=== PATIENT | female | born 1950 | race Caucasian/White ===

== ENCOUNTER 2018-11-01 12:08 | Emergency (ER) | payer BC, MEDICARE ==
--- NOTE | 2018-11-01 12:36 | EDM.PDOC ---
ED HPI GENERAL MEDICAL PROBLEM - General Chief Complaint: Gastrointestinal Problem Stated Complaint: BLACK STOOLS Time Seen by Provider: 11/01/18 12:25 Source of Information: Reports: Patient, Old Records, RN, RN Notes Reviewed History Limitations: Reports: No Limitations - History of Present Illness INITIAL COMMENTS - FREE TEXT/NARRATIVE: Pt presents to ER from home by POV with c/o black tarry stool. Pt states that last Wednesday (10/25/18) she called Nery Alvarez NP at [facility] because she was having some constipation and cramping. Because she has had diverticulitis in the past Nery prescribed her Cipro and Flagyl over the phone. She felt that she was improving as expected, but went to see Nery Alvarez MOLD PRESS OPERATOR in clinic on 10/28 at which time she had blood drawn for lab and had her semi annual check up, and was told to continue the antibiotics. Yesterday (10/31/18) she had onset of chills with LLQ abdominal cramping, and began having black stools. She denies fevers, nausea, vomiting, rapid HR, lightheadedness, or shortness of breath. Denies any bright red blood from the rectum. Onset Date: 10/31/18 Duration: Recurring Location: Reports: Abdomen Quality: Reports: Ache Severity: Mild Improves with: Reports: None Worsens with: Reports: None Associated Symptoms: Reports: No Other Symptoms Bilateral Lower Abdomen Pain Score (Numeric/FACES): 6 - Related Data Allergies Allergy/AdvReac Type Severity Reaction Status Date / Time codeine Allergy Intermediate Vomiting Verified 11/01/18 12:16 Home Meds: Home Meds Calcium Carbonate/Vitamin D3 [Calcium 500 + Vit D 400] 1 tab PO DAILY 06/27/13 [ History] Fluticasone Propionate [Flonase] 2 sprays IAN DAILY 06/27/13 [History] Lansoprazole [Prevacid] 1 tab PO DAILY 06/27/13 [History] Losartan [Cozaar] 50 mg PO DAILY 06/27/13 [History] Metoprolol Succinate [Toprol XL] 25 mg PO DAILY 06/27/13 [History] [place]-3 Fatty Acids [[place]-3] 2 cap PO BID 06/27/13 [History] Aspirin [Halfprin] 81 mg PO DAILY 11/01/18 [History] Ciprofloxacin HCl [Cipro] 500 mg PO BID 11/01/18 [History] metroNIDAZOLE [Metronidazole] 500 mg PO TID 11/01/18 [History] Past Medical History - Past Health History Medical/Surgical History: Denies Medical/Surgical History HEENT History: Reports: Impaired Vision Cardiovascular History: Reports: Hypertension Gastrointestinal History: Reports: Diverticulosis - Past Surgical History GI Surgical History: Reports: Cholecystectomy Female Surgical History: Reports: Hysterectomy Musculoskeletal Surgical History: Reports: Arthroscopic Knee Social & Family History - Tobacco Use Smoking Status *Q: Never Smoker Second Hand Smoke Exposure: No - Recreational Drug Use Recreational Drug Use: No - Living Situation & Occupation Living situation: Reports: with Family ED ROS GENERAL - Review of Systems Review Of Systems: ROS reveals no pertinent complaints other than HPI. ED EXAM, GI/ABD - Physical Exam Exam: See Below Exam Limited By: No Limitations General Appearance: Alert, WD/WN, No Apparent Distress Eyes: Bilateral: Normal Appearance Head: Atraumatic, Normocephalic Neck: Normal Inspection Respiratory/Chest: No Respiratory Distress, Lungs Clear, Normal Breath Sounds, No Accessory Muscle Use, Chest Non-Tender Cardiovascular: Regular Rate, Rhythm, No Edema, Tachycardia GI/Abdominal Exam: Normal Bowel Sounds, Soft, No Organomegaly, No Distention, No Abnormal Bruit, No Mass, Pelvis Stable, Tender (Very slight LLQ tenderness, no peritoneal signs) (Female) Exam: Deferred Rectal (Female) Exam: Heme - Stool Back Exam: Normal Inspection Extremities: Normal Inspection Neurological: Alert, Oriented, No Motor/Sensory Deficits Psychiatric: Normal Mood Skin Exam: Warm, Dry, Intact, Normal Color, No Rash Course - Vital Signs Last Recorded V/S: Last Vital Signs Temp 36.6 C 11/01/18 12:11 Pulse 116 H 11/01/18 12:11 Resp 18 11/01/18 12:11 BP 188/93 H 11/01/18 12:11 Pulse Ox 96 11/01/18 12:11 - Orders/Labs/Meds Orders: Active Orders 24 hr Category Date Time Status Peripheral IV Care [RC] . DIRECTED Care 11/01/18 12:37 Active AMYLASE [CHEM] Stat Lab 11/01/18 12:46 Received COMPREHENSIVE METABOLIC PN,CMP [CHEM] Stat Lab 11/01/18 12:46 Received INR,PT,PROTHROMBIN TIME [COAG] Stat Lab 11/01/18 12:46 Received LIPASE [CHEM] Stat Lab 11/01/18 12:46 Received PTT,PARTIAL THROMBOPLSTIN TIME [COAG] Stat Lab 11/01/18 12:46 Received Sodium Chloride 0.9% [Normal Saline] 1,000 ml Med 11/01/18 12:37 Active IV .BOLUS Sodium Chloride 0.9% [Saline Flush] Med 11/01/18 12:37 Active 10 ml FLUSH ASDIRECTED PRN Peripheral IV Insertion Adult [OM.PC] Stat Oth 11/01/18 12:36 Ordered Medication Orders Sodium Chloride (Normal Saline) 1,000 mls @ 999 mls/hr IV .BOLUS ONE Stop: 11/01/18 13:37 Last Admin: 11/01/18 12:47 Dose: 999 mls/hr Sodium Chloride (Saline Flush) 10 ml FLUSH ASDIRECTED PRN PRN Reason: Keep Vein Open Labs: Laboratory Tests 11/01/18 11/01/18 Range/Units 12:46 12:46 WBC 6.4 (5.0-10.0) 10^3/uL RBC 4.73 (4.2-5.4) 10^6/uL Hgb 14.1 (12.0-16.0) g/dL Hct 41.3 (37.0-47.0) % MCV 87.3 (80-100) fL MCH 29.8 (27.0-34.0) pg MCHC 34.1 (33.0-35.0) g/dL Plt Count 319 (150-450) 10^3/uL Neut % (Auto) 58.8 (42.2-75.2) % Lymph % (Auto) 30.7 (20.5-50.1) % [place] % (Auto) 7.4 (2-8) % Eos % (Auto) 2.5 (1.0-3.0) % Baso % (Auto) 0.6 (0.0-1.0) % Lactic Acid 2.0 (0.5-2.2) mmol/L Meds: Medications Generic Name Dose Route Start Last Admin Trade Name Freq PRN Reason Stop Dose Admin Sodium Chloride 1,000 mls @ 999 mls/hr 11/01/18 12:37 11/01/18 12:47 Normal Saline IV 11/01/18 13:37 999 mls/hr .BOLUS ONE Administration Sodium Chloride 10 ml 11/01/18 12:37 Saline Flush FLUSH ASDIRECTED PRN Keep Vein Open - Re-Assessments/Exams Free Text/Narrative Re-Assessment/Exam: 11/01/18 13:20 Pt had a BM while in the ER. The BM was dark brown but not black, and was Heme Negative. No anemia or elevated WBC. I called eNry Alvarez MOLD PRESS OPERATOR (pt's PCP) to arrange f/u for this week. I see no indication of imaging or further evaluation at this time. Pt with be d/c'd home to continue her current medications. Departure - Departure Time of Disposition: 13:15 Disposition: Home, Self-Care 01 Condition: Good Clinical Impression: Encounter for medical screening examination, Dehydration - Discharge Information *PRESCRIPTION DRUG MONITORING PROGRAM REVIEWED*: No *COPY OF PRESCRIPTION DRUG MONITORING REPORT IN PATIENT CLAY: No Instructions: Dehydration, Adult Forms: ED Department Discharge Additional Instructions: Your stool was negative for blood at today's ER visit. Drink plenty of water. Follow up with Nery Alvarez in clinic this week to recheck your stool for blood. - My Orders Last 24 Hours: My Active Orders 11/01/18 12:36 Peripheral IV Insertion Adult [OM.PC] Stat 11/01/18 12:37 Peripheral IV Care [RC] . DIRECTED Sodium Chloride 0.9% [Normal Saline] 1,000 ml IV .BOLUS Sodium Chloride 0.9% [Saline Flush] 10 ml FLUSH ASDIRECTED PRN 11/01/18 12:46 AMYLASE [CHEM] Stat COMPREHENSIVE METABOLIC PN,CMP [CHEM] Stat INR,PT,PROTHROMBIN TIME [COAG] Stat LIPASE [CHEM] Stat PTT,PARTIAL THROMBOPLSTIN TIME [COAG] Stat - Assessment/Plan Last 24 Hours: My Active Orders 11/01/18 12:36 Peripheral IV Insertion Adult [OM.PC] Stat 11/01/18 12:37 Peripheral IV Care [RC] . DIRECTED Sodium Chloride 0.9% [Normal Saline] 1,000 ml IV .BOLUS Sodium Chloride 0.9% [Saline Flush] 10 ml FLUSH ASDIRECTED PRN 11/01/18 12:46 AMYLASE [CHEM] Stat COMPREHENSIVE METABOLIC PN,CMP [CHEM] Stat INR,PT,PROTHROMBIN TIME [COAG] Stat LIPASE [CHEM] Stat PTT,PARTIAL THROMBOPLSTIN TIME [COAG] Stat
[2018-11-01] MEDS ORDERED: Sodium Chloride 0.9% 10 ML Syringe FLUSH PRN (12:37)
[2018-11-01] MEDS ORDERED: Sodium Chloride 0.9% 1,000 ML IV ONE (12:37)
[2018-11-01 13:17] LABS: CHLORIDE,CL 102 mmol/L (101-111); SODIUM,NA 132 mmol/L (135-145)
== END 2018-11-01 13:29 | disposition home or self-care (01) ==
LOC: DL.ED 12:08
DX: E86.0 Dehydration (principal); R19.5 Other fecal abnormalities; I10 Essential (primary) hypertension; Z88.5 Allergy status to narcotic agent; Z79.82 Long term (current) use of aspirin; Z79.899 Other long term (current) drug therapy; Z90.49 Acquired absence of other specified parts of digestive tract; Z90.710 Acquired absence of both cervix and uterus
CPT/HCPCS: 36415; 80053; 82150; 82272; 83605; 83690; 85025; 85610; 85730; 96360; 99284-25; J7030

== ENCOUNTER 2018-12-13 06:19 | Day surgery (SDC) | payer BC ==
[~2018-12-13 06:19] MED LIST: Midazolam 1 MG/ML 2 ML SDV ONE; fentaNYL 100 MCG/2 ML SDV ONE
[2018-12-13] MEDS ORDERED: fentaNYL 100 MCG/2 ML SDV IV ONE ×3 (06:20→07:31)
[2018-12-13] MEDS ORDERED: Midazolam 1 MG/ML 2 ML SDV IV ONE ×5 (06:20→07:36)
[2018-12-13] MEDS ORDERED: Dextrose 5%-0.45% NaCl 1,000 ML IV SCH (07:00)
[2018-12-13] MEDS ORDERED: Sodium Chloride 0.9% 10 ML Syringe FLUSH PRN (07:00)
--- NOTE | 2018-12-13 08:24 | OR ---
DATE: 12/13/2018 PROCEDURE: Total colonoscopy. INSTRUMENT USED: PCF-H190DL Olympus video colonoscope. PREMEDICATIONS: Fentanyl 100 mcg intravenous, Versed 3 mg intravenous. Nasal O2 cannula. The procedure was done under pulse oximetry, BP recording, and cardiac technologist. INDICATION: The patient with recent left-sided lower abdominal pain and rectal bleeding. Colonoscopic examination is done for detection of any polypoid lesions and removal, endoscopic hemostasis therapy if needed. DESCRIPTION OF PROCEDURE: Initial rectal exam was unremarkable. Rigid anoscopy was normal. The colonoscope was passed with ease. Numerous scattered diverticula were noted in the distal left colon along with deformity. The scope was passed with ease up to the ileocecal area. Photographs were taken of the normal-appearing cecum identified by landmarks of appendiceal orifice and double- bulged ileocecal folds. No bleeding was noted from any of the visualized areas at the commencement of the examination. The bowel preparation was found to be adequate, Holcomb scale 3 in all the regions. No stricture. No vascular ectasia. No large isolated ulcerations seen. No evidence of diffuse inflammatory bowel disease in the form of friability, contact bleeding, or ulcerations. No polyp or tumor mass identified. Probing the proximal sides of folds and flexures, using adequate distention and clearing of the stool material, withdrawal of the scope was made, cecum to rectum time over 6 minutes. No bleeding was noted from any of the visualized areas at the completion of examination. IMPRESSION: Diverticulosis. The patient tolerated the procedure well. [facility] /[id number]
== END 2018-12-13 09:53 | disposition home or self-care (01) ==
LOC: DL.ENDO 06:19
PROVIDERS: ATTEND Internal Medicine Gastroenterology
DX: K62.5 Hemorrhage of anus and rectum (principal); R10.32 Left lower quadrant pain; K57.90 Diverticulosis of intestine, part unspecified, without perforation or abscess without bleeding
CPT/HCPCS: 45378; J2250; J3010; J7042; G0121

== ENCOUNTER 2019-03-15 10:02 | Observation (INO) | payer BC, MEDICARE ==
[2019-03-15] MEDS ORDERED: Potassium Chloride 10 MEQ Tab.ER PO ONE (11:39)
[2019-03-15] MEDS ORDERED: Sodium Chloride 0.9% 10 ML Syringe FLUSH PRN ×2 (11:39)
[2019-03-15] MEDS ORDERED: Acetaminophen 500 MG Tab PO PRN (11:42)
--- NOTE | 2019-03-15 12:15 | PCM.HP ---
H&P History of Present Illness - General Date of Service: 03/15/19 Admit Problem/Dx: Admission Diagnosis/Problem Admission Diagnosis/Problem Hypokalemia Source of Information: Patient History Limitations: Reports: No Limitations - History of Present Illness Initial Comments - Free Text/Narative: 68 yo F with PMH of HTN, DM2 (diet controlled), HLD who was admitted from the PCP clinic today for abnormal lab value (potassium 2.7) Patient was being followed up in PCP clinic today as new HTN med was added last week (chlorthalidone). Lab work showed a potassium of 2.7 Patient is generally asymptomatic. No diarrhea, no n/v, no chest pain, no abdominal pain. - Related Data Allergies/Adverse Reactions: Allergies Allergy/AdvReac Type Severity Reaction Status Date / Time codeine Allergy Intermediate Vomiting Verified 12/13/18 06:50 Home Medications: Home Meds Calcium Carbonate/Vitamin D3 [Calcium 500 + Vit D 400] 1 tab PO DAILY 06/27/13 [ History] Fluticasone Propionate [Flonase] 2 sprays IAN DAILY 06/27/13 [History] Lansoprazole [Prevacid] 30 mg PO DAILY 06/27/13 [History] [place]-3 Fatty Acids [[place]-3] 1 cap PO BID 06/27/13 [History] Aspirin [Halfprin] 81 mg PO DAILY 11/01/18 [History] Acetaminophen [Tylenol Extra Strength] 1,000 mg PO Q6H PRN 12/12/18 [History] Ibuprofen 400 mg PO Q6H PRN 12/12/18 [History] atorvaSTATin Calcium [Atorvastatin Calcium] 20 mg PO BEDTIME 12/12/18 [History] Chlorthalidone 12.5 mg PO DAILY 03/15/19 [History] Losartan [Cozaar] 100 mg PO DAILY 03/15/19 [History] Metoprolol Succinate [Toprol Xl] 50 mg PO DAILY 03/15/19 [History] Past Medical History - Past Health History Medical/Surgical History: Denies Medical/Surgical History HEENT History: Reports: Impaired Vision Cardiovascular History: Reports: Hypertension Respiratory History: Reports: Bronchitis, Recurrent Gastrointestinal History: Reports: Diverticulosis Genitourinary History: Reports: None 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: Musculoskeletal History: Reports: Arthritis, Back Pain, Chronic Neurological History: Reports: None Endocrine/Metabolic History: Reports: None Hematologic History: Reports: None Oncologic (Cancer) History: Reports: None Dermatologic History: Reports: None - Infectious Disease History Infectious Disease History: Reports: Chicken Pox, Measles, Mumps - Past Surgical History Head Surgeries/Procedures: Reports: None HEENT Surgical History: Reports: None Cardiovascular Surgical History: Reports: None GI Surgical History: Reports: Appendectomy, Cholecystectomy, Colonoscopy, EGD Female Surgical History: Reports: Hysterectomy Musculoskeletal Surgical History: Reports: None, Arthroscopic Knee Social & Family History - Caffeine Use Caffeine Use: Reports: Coffee Caffeine Use Comment: 2 cups daily - Living Situation & Occupation Living situation: Reports: with Family H&P Review of Systems - Review of Systems: Review Of Systems: ROS reveals no pertinent complaints other than HPI. General: Reports: No Symptoms HEENT: Reports: No Symptoms Pulmonary: Reports: No Symptoms Cardiovascular: Reports: No Symptoms Gastrointestinal: Reports: No Symptoms Genitourinary: Reports: No Symptoms Musculoskeletal: Reports: No Symptoms Skin: Reports: No Symptoms Psychiatric: Reports: No Symptoms Neurological: Reports: No Symptoms Exam - Exam Exam: See Below - Exam General: Alert, Oriented HEENT: Conjunctiva Clear, EACs Clear Neck: Supple, Trachea Midline Lungs: Clear to Auscultation, Normal Respiratory Effort Cardiovascular: Regular Rate, Regular Rhythm GI/Abdominal Exam: Normal Bowel Sounds, Soft, Non-Tender, No Organomegaly Extremities: Normal Inspection, Normal Range of Motion, Non-Tender, No Pedal Edema - Patient Data Lab Results Last 24 hrs: Laboratory Results - last 24 hr 03/15/19 Range/Units 12:02 POC Glucose 106 H (70-105) mg/dl Problem List Initiated/Reviewed/Updated: Yes Orders Last 24hrs: Active Orders 24 hr Category Date Time Status Patient Status [ADT] Routine ADT 03/15/19 11:40 Active Accu Check [Blood Glucose Check, Bedside] [] Care 03/15/19 11:40 Active QIDACANDBED Ambulate [] ASDIRECTED Care 03/15/19 11:40 Active Height and Weight [RC] DAILY Care 03/15/19 11:40 Active Oxygen Therapy [RC] PRN Care 03/15/19 11:40 Active Peripheral IV Care [RC] . DIRECTED Care 03/15/19 11:40 Active Up With Assistance [RC] ASDIRECTED Care 03/15/19 11:40 Active VTE/DVT Education [RC] PER UNIT ROUTINE Care 03/15/19 11:40 Active Vital Signs [RC] Q4H Care 03/15/19 11:40 Active Regular Diet [DIET] Diet 03/15/19 Breakfast Active POTASSIUM,K [CHEM] Q6H Lab 03/15/19 11:55 Received POTASSIUM,K [CHEM] Q6H Lab 03/15/19 17:39 Ordered POTASSIUM,K [CHEM] Q6H Lab 03/15/19 23:39 Ordered Acetaminophen [Tylenol Extra Strength] Med 03/15/19 11:42 Ordered 1,000 mg PO Q6H PRN Aspirin [Halfprin] Med 03/16/19 09:00 Ordered 81 mg PO DAILY Calcium Carbonate/Vitamin D3 [Calcium 500 + Vit D 400] Med 03/16/19 09:00 Ordered 1 tab PO DAILY Chlorthalidone Med 03/16/19 09:00 Ordered 12.5 mg PO DAILY Fluticasone Propionate [Flonase] Med 03/16/19 09:00 Ordered DOSE gm IAN DAILY Insulin Lispro [HumaLOG] Med 03/15/19 17:00 Ordered See Protocol SUBCUT QIDACANDBED Lansoprazole [Prevacid] Med 03/16/19 09:00 Ordered 30 mg PO DAILY Losartan [Cozaar] Med 03/16/19 09:00 Ordered 100 mg PO DAILY Metoprolol Succinate [Toprol XL] Med 03/16/19 09:00 Ordered 50 mg PO DAILY [place]-3 Fatty Acids [[place]-3] Med 03/15/19 21:00 Ordered 1 cap PO BID Potassium Chloride [KCl 10 MEQ in Water 100 ML] 10 meq Med 03/15/19 11:45 Ordered Premix Bag 1 bag IV Q1H Potassium Chloride [Klor-Con 10] Med 03/15/19 11:39 Once 40 meq PO ONETIME ONE Sodium Chloride 0.9% [Saline Flush] Med 03/15/19 11:39 Ordered 10 ml FLUSH ASDIRECTED PRN Sodium Chloride 0.9% [Saline Flush] Med 03/15/19 11:39 Ordered 10 ml FLUSH ASDIRECTED PRN atorvaSTATin [Lipitor] Med 03/15/19 21:00 Ordered 20 mg PO BEDTIME Peripheral IV Insertion Adult [OM.PC] Routine Oth 03/15/19 11:40 Ordered Saline Lock Insert [OM.PC] Routine Oth 03/15/19 11:40 Ordered Resuscitation Status Routine Resus Stat 03/15/19 11:39 Ordered Medication Orders Acetaminophen (Tylenol Extra Strength) 1,000 mg PO Q6H PRN PRN Reason: Pain Aspirin (Halfprin) 81 mg PO DAILY [facility] Atorvastatin Calcium (Lipitor) 20 mg PO BEDTIME [place] Chlorthalidone (Chlorthalidone) 12.5 mg PO DAILY [facility] Fluticasone Propionate (Flonase) gm IAN DAILY [place] Potassium Chloride 10 meq/ (Premix) 100 mls @ 100 mls/hr IV Q1H [place] Stop: 03/15/19 15:44 Insulin Human Lispro (Humalog) 0 unit SUBCUT QIDACANDBED [place]; Protocol Metoprolol Succinate (Toprol Xl) 50 mg PO DAILY [place] Non-Formulary Medication (Calcium Carbonate/Vitamin D3 [Calcium 500 + Vit D 400] ) 1 tab PO DAILY [place] Non-Formulary Medication (Lansoprazole [Prevacid]) 30 mg PO DAILY [place] Non-Formulary Medication (Losartan [Cozaar]) 100 mg PO DAILY [place] Non-Formulary Medication ([place]-3 Fatty Acids [[place]-3]) 1 cap PO BID [place] Potassium Chloride (Klor-Con 10) 40 meq PO ONETIME ONE Stop: 03/15/19 11:40 Sodium Chloride (Saline Flush) 10 ml FLUSH ASDIRECTED PRN PRN Reason: Keep Vein Open Sodium Chloride (Saline Flush) 10 ml FLUSH ASDIRECTED PRN PRN Reason: Keep Vein Open Assessment/Plan Comment:: Hypokalemia unclear etiology replenish potassium both IV and orally check potassium Q6h encouraged patient to eat green leafy veggies in diet Plan to dc tomorrow after correcting potassium #Hx of HTN good BP control continue home meds #DM2 diet controlled accuchecks, ISS carb consistent diet #HLD continue home med #DVT ppx SC lovenox
[2019-03-15] MEDS: Potassium Chloride 20 MEQ in Premix Bag 1 BAG IV SCH ×2 (13:24→16:04)
[2019-03-15] MEDS: Insulin Lispro 100 Units/ML 3 ML Vial SUBCUT SCH (18:36)
[2019-03-15] MEDS ORDERED: atorvaSTATin 20 MG Tab PO SCH (21:00)
[2019-03-15] MEDS ORDERED: OMEGA PO SCH (21:00)
[2019-03-16] MEDS: Insulin Lispro 100 Units/ML 3 ML Vial SUBCUT SCH (07:47)
[2019-03-16] MEDS ORDERED: Chlorthalidone 25 MG Tab PO SCH (09:00)
[2019-03-16] MEDS ORDERED: Non-Formulary Medication 1 Each (Lansoprazole [Prevacid] 30 MG) PO SCH (09:00)
[2019-03-16] MEDS ORDERED: Metoprolol Succinate 50 MG Tab.ER PO SCH (09:00)
[2019-03-16] MEDS ORDERED: Aspirin 81 MG Tab.EC PO SCH (09:00)
[2019-03-16] MEDS ORDERED: Non-Formulary Medication 1 Each (Losartan [Cozaar] 100 MG) PO SCH (09:00)
[2019-03-16] MEDS ORDERED: Fluticasone Propionate Nasal Spray 16 GM Bottle NAS SCH (09:00)
[2019-03-16] MEDS ORDERED: Enoxaparin 40 MG/0.4 ML Syringe SUBCUT SCH (09:30)
--- NOTE | 2019-03-16 10:54 | PCM.DCSUM1 ---
Discharge Summary - Hospital Course Free Text/Narrative:: 68 yo F with PMH of HTN, DM2 (diet controlled), HLD who was admitted from the PCP clinic today for abnormal lab value (potassium 2.7) Patient was being followed up in PCP clinic today as new HTN med was added last week (chlorthalidone). Lab work showed a potassium of 2.7 Patient is generally asymptomatic. No diarrhea, no n/v, no chest pain, no abdominal pain. Potassium was replenished both IV and orally and normalized. Hypokalemia likely 2/2 to newly started diuretic. Discharged on potassium supplement (10 mEq daily] for 2 weeks Follow up with PCP REcheck BMP in one week. Encouraged to eat green leafy vegetables. Diagnosis: Stroke: No Modified [place] Scale: No Symptoms at All Modified Dmitriy Scale Score: 0 - Discharge Data Discharge Date: 03/16/19 Discharge Disposition: Home, Self-Care 01 Condition: Good - Referral to Home Health Primary Care Physician: PARIS Erazo - Patient Instructions Diet: Usual Diet as Tolerated Activity: As Tolerated Driving: May Drive Today - Discharge Plan Prescriptions/Med Rec: Potassium Chloride 10 meq PO DAILY 14 Days #14 tablet.er Home Medications: Home Meds Calcium Carbonate/Vitamin D3 [Calcium 500 + Vit D 400] 1 tab PO DAILY 06/27/13 [ History] Fluticasone Propionate [Flonase] 2 sprays IAN DAILY 06/27/13 [History] Lansoprazole [Prevacid] 30 mg PO DAILY 06/27/13 [History] [place]-3 Fatty Acids [[place]-3] 1 cap PO BID 06/27/13 [History] Aspirin [Halfprin] 81 mg PO DAILY 11/01/18 [History] Acetaminophen [Tylenol Extra Strength] 1,000 mg PO Q6H PRN 12/12/18 [History] atorvaSTATin Calcium [Atorvastatin Calcium] 20 mg PO BEDTIME 12/12/18 [History] Chlorthalidone 12.5 mg PO DAILY 03/15/19 [History] Losartan [Cozaar] 100 mg PO DAILY 03/15/19 [History] Metoprolol Succinate [Toprol Xl] 50 mg PO DAILY 03/15/19 [History] Potassium Chloride 10 meq PO DAILY 14 Days #14 tablet.er 03/16/19 [Rx] Patient Handouts: Hypokalemia, Potassium Content of Foods Referrals: Nery Alvarez PA [Primary Care Provider] - 03/22/19 10:00 am - Discharge Summary/Plan Comment DC Time >30 min.: Yes - General Info Date of Service: 03/16/19 Admission Dx/Problem (Free Text: Admission Diagnosis/Problem Admission Diagnosis/Problem Hypokalemia Subjective Update: No new complaints - Review of Systems General: Reports: No Symptoms HEENT: Reports: No Symptoms Pulmonary: Reports: No Symptoms Cardiovascular: Reports: No Symptoms Gastrointestinal: Reports: No Symptoms Genitourinary: Reports: No Symptoms Musculoskeletal: Reports: No Symptoms Skin: Reports: No Symptoms Neurological: Reports: No Symptoms - Patient Data Vitals - Most Recent: Last Vital Signs Temp 36.3 C 03/16/19 07:00 Pulse 60 03/16/19 07:00 Resp 16 03/16/19 07:00 BP 111/85 03/16/19 07:00 Pulse Ox 99 03/16/19 07:00 Weight - Most Recent: 68.663 kg I&O - Last 24 hours: Intake & Output 03/15/19 03/16/19 03/16/19 22:59 06:59 14:59 Intake Total 240 480 Balance 240 480 Lab Results - Last 24 hrs: Laboratory Results - last 24 hr 03/15/19 03/15/19 03/15/19 Range/Units 11:55 12:02 16:58 Potassium 3.0 L (3.6-5.0) mmol/L POC Glucose 106 H 125 H (70-105) mg/dl 03/15/19 03/15/19 03/15/19 Range/Units 17:47 21:04 23:43 Potassium 3.7 3.8 (3.6-5.0) mmol/L POC Glucose 85 (70-105) mg/dl 03/16/19 Range/Units 07:22 Potassium (3.6-5.0) mmol/L POC Glucose 108 H (70-105) mg/dl Med Orders - Current: Current Medications Acetaminophen (Tylenol Extra Strength) 1,000 mg PO Q6H PRN PRN Reason: Pain Aspirin (Halfprin) 81 mg PO DAILY [facility] Atorvastatin Calcium (Lipitor) 20 mg PO BEDTIME [facility] Chlorthalidone (Chlorthalidone) 12.5 mg PO DAILY [facility] Enoxaparin Sodium (Lovenox) 40 mg SUBCUT DAILY [facility] Fluticasone Propionate (Flonase) gm IAN DAILY [facility] Insulin Human Lispro (Humalog) 0 unit SUBCUT QIDACANDBED [facility]; Protocol Last Admin: 03/16/19 07:47 Dose: Not Given Metoprolol Succinate (Toprol Xl) 50 mg PO DAILY [facility] Non-Formulary Medication (Calcium Carbonate/Vitamin D3 [Calcium 500 + Vit D 400] ) 1 tab PO DAILY [place] Non-Formulary Medication (Lansoprazole [Prevacid]) 30 mg PO DAILY [facility] Non-Formulary Medication (Losartan [Cozaar]) 100 mg PO DAILY [facility] Non-Formulary Medication ([place]-3 Fatty Acids [[place]-3]) 1 cap PO BID [facility] Sodium Chloride (Saline Flush) 10 ml FLUSH ASDIRECTED PRN PRN Reason: Keep Vein Open Last Admin: 03/15/19 13:27 Dose: 10 ml Discontinued Medications Potassium Chloride 20 meq/ (Premix) 100 mls @ 100 mls/hr IV Q2H [place] Stop: 03/15/19 14:59 Last Infusion: 03/15/19 18:37 Dose: Infused Potassium Chloride (Klor-Con 10) 40 meq PO ONETIME ONE Stop: 03/15/19 11:40 Last Admin: 03/15/19 13:25 Dose: 40 meq - Exam General: Reports: Alert, Oriented HEENT: Reports: Pupils Equal, Pupils Reactive Neck: Reports: Supple Lungs: Reports: Clear to Auscultation, Normal Respiratory Effort Cardiovascular: Reports: Regular Rate, Regular Rhythm GI/Abdominal Exam: Normal Bowel Sounds, Soft, Non-Tender, No Organomegaly, No Distention Extremities: Normal Inspection, Normal Range of Motion, Non-Tender, No Pedal Edema Neurological: Reports: No New Focal Deficit
== END 2019-03-16 11:05 | disposition home or self-care (01) ==
LOC: DL.MS 10:02 → UNDOADMOB 10:02 → DL.MS 11:40
PROVIDERS: ADMIT Hospitalist; ATTEND Hospitalist
DX: E87.6 Hypokalemia (principal); I10 Essential (primary) hypertension; E11.9 Type 2 diabetes mellitus without complications; E78.5 Hyperlipidemia, unspecified; M19.90 Unspecified osteoarthritis, unspecified site; Z88.5 Allergy status to narcotic agent; Z79.51 Long term (current) use of inhaled steroids; Z79.899 Other long term (current) drug therapy; Z79.82 Long term (current) use of aspirin
CPT/HCPCS: 36415; 82962; 84132; 96365; 96366; A9270; G0378; G0379; J3480